=== PATIENT | male | born 1955 | race Caucasian/White ===

== ENCOUNTER 2024-09-12 13:28 | Outpatient (AMB) | payer MEDICARE, SELFPAY ==
--- OUTSIDE RECORDS SUMMARY | 2015-04-26 | XMS_ITS | Encounter Summary ---
Author Organization [facility] Address [address] [place] [address] Phone Care Team Providers Care Soda Drier Feeder Name Role Phone Bart Campa MD Primary Care Provider + [phone] Reason for Visit * MRI/CAT Scan - Closed Specialty Diagnoses / Procedures Referred By Contac t Referred To Contact Procedures MRI Brain Outside (No Interpretation) Lety Holt MD [address] [place] [address] Phone: tel: fax: mailto:[email or web address] Referral ID Status Reason Start Date Expiration Date Visits Re quested Visits Authorized [id number] Closed 06/14/2016 06/14/2017 1 1 Encounter Details Date Type Department Care Team (Late st Contact Info) Description 04/26/2015 Hospital Encounter [facility] General Imaging [address] [place] [address] Lety Holt MD [address] [place] [address] [email or web address] Social History Tobacco Use Types Packs/Day Years Used Date Smoking Tobacco: Unknown Education Answer Date Recorded Are you interested in more education? Not on eric e 06/18/2022 Are you concerned about learning? Not on file 06/18/2022 No 06/18/2022 No 06/18/2022 Digital Access Answer Date Recorded No 07/09/2022 No 07/09/2022 No 07/09/2022 Reliable internet access at home? Not on file 07/09/2022 Device with a working camera? Not on file Sex and Gender Information Value Date Recorded Sex Assigned at Not on file Legal Sex Male 6:01 PM EST Gender Identity Not on file Sexual Orientation Not on file documented as of this encounter Plan of Treatment Not on file documented as of this encounter Procedures Procedure Name Priority Date/Time Associated Diagnosis Comments MRI BRAIN OUTSIDE (NO INTERPRETATION) Routine 04/26/2015 12:00 AM EDT documented in this encounter Results * MRI Brain Outside (No Interpretation) (04/26/2015 12:00 AM EDT) Narrative [facility] - 06/14/2016 1:48 PM EDT This study is for PACS storage only and not for interpretation. us Lety Holt MD IMG OUTSIDE IMAGING W/OUT INTERP RETATION Final Result Performing Organization Address City/State/[facility] Co de Phone Number [facility] documented in this encounter Visit Diagnoses Not on filedocumented in this encounter Care Teams Soda Drier Feeder Relationship Specialty Start Date End Date Bart Campa MD [address] [place] [address] PCP - General 08/12/13 documented as of this encounter Additional Source Comments The information contained in this document represents components of the legal health record. It is not the complete legal health record.[facility]
--- OUTSIDE RECORDS SUMMARY | 2024-09-09 16:43 | XMS_ITS | Continuity of Care Document ---
Author Organization [facility] ter Address [address] [place] [address]- Care Team Providers Care Shipping/Receiving Manager Name Role Phone Bart Campa MD [id number] Date[facility]): [facility]09/24 - 09/09/[address] [address]- Discharge Disposition: A-D/C Home Attending Physician: Guillermo Tracey DO Admitting Physician: Guillermo Tracey DO Referring Physician: Not on Staff, Referring MD Encounter Type: Disch ES Allergies, Adverse Reactions, Alerts Substance Criticality Severity Reaction Reaction Severity Status Tape Rash some tape causes mild redness on skin Active Other Environmental Allergy 1, 2 Unable to assess criticality Intermittent casting matterial Blisters Rash Active Percocet 5/325 nausea Activ e Darvocet-N 100 nausea Activ e 1PT IS ALLERGIC TO CASTING MATERIAL USED FOR ORTHOPEDICS 2Casting material Immunizations Given and Recorded Vaccine Date Status Refusal Reason SARS-CoV-2 (COVID-19) mRNA-1273 vaccine 05/04/20 G iven SARS-CoV-2 (COVID-19) mRNA-1273 vaccine 04/2020 R ecorded SARS-CoV-2 (COVID-19) mRNA-1273 vaccine 04/06/20 G iven pneumococcal 23-valent vaccine 1 12/07/18 Given 1Result Comment: sent up from pharmacy by curtis pisano WNL- was discarded in sharps containerprior to completetion of info documentation Medications buPROPion 300 mg/24 hours (XL) oral tablet, extended release 1 tablet = 300 mg, By Mouth, Daily at bedtime, # 30 tablet, 0 Refills, Maintenance, 12/04/18 8:23:26 PM EDT, ER Tablet Start Date: 12/04/18 Status: Ordered Quantity: 30.0 Unit: tablet Repeat number: 1 duloxetine 60 mg oral enteric coated capsule 2 capsule = 120 mg, By Mouth, Daily in AM, # 30 capsule, 0 Refills, Maintenance, 12/04/18 8:24:33 PM EDT, EC Capsule Start Date: 12/04/18 Status: Ordered Quantity: 30.0 Unit: capsule Repeat number: 1 Fish Oil = 500 mg, By Mouth, 0 Refills, Maintenance, 10/26/22 2:36:00 PM EDT, Partial fill upon patient request if the prescription is for a schedule II opioid drug. Start Date: 10/26/22 Status: Ordered Repeat number: 1 gabapentin 300 mg oral capsule See Instructions, By Mouth, Daily in AM, 1 capsule Daily in AM 300 in am 600mg in pm, # 3 tablet, Refills 0, Tot. Refills 0, Maintenance, 07/05/20 1:20:00 PM EDT, Instructions Replace Required Details, Print Requisition, Partial fill upon patient request if the prescription is for a schedule II opioid drug. Start Date: 07/05/20 Status: Ordered Quantity: 3.0 Unit: tablet Repeat number: 1 Omeprazole = 40 mg, By Mouth, Daily, 0 Refills, Maintenance, 02/22/23 2:10:00 PM EST, Partial fill upon patientrequest if the prescription is for a schedule II opioid drug. Start Date: 02/22/23 Status: Ordered Repeat number: 1 pravastatin 80 mg oral tablet 1 tablet = 80 mg, By Mouth, Daily in AM, 0 Refills, Maintenance, 07/08/21 2:43:00 PM EDT, Partial fill upon patient request if the prescription is for a schedule II opioid drug. Start Date: 07/08/21 Status: Ordered Repeat number: 1 Super B Complex 1 tab, By Mouth, Daily, 0 Refills, Maintenance, 06/24/20 5:07:00 PM EDT, Partial fill upon patient request if the prescription is for a schedule II opioid drug. Start Date: 06/24/20 Status: Ordered Repeat number: 1 tadalafil 5 mg oral tablet 1 tablet = 5 mg, By Mouth, Daily at bedtime, 0 Refills, Maintenance, 07/08/21 2:40:00 PM EDT, Partial fill upon patient request if the prescription is for a schedule II opioid drug. Start Date: 07/08/21 Status: Ordered Repeat number: 1 tamsulosin 0.4 mg oral capsule 0.4 mg, 1, capsule, By Mouth, Daily, # 30 capsule, Refills 0, Maintenance, 07/02/24 10:49:00 AM EDT,Partial fill upon patient request if the prescription is for a schedule II opioid drug. 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 spent the day doing house work, walking a lot. denies injury or falls. pain with walking or movement only; Reason: Trauma; with Pain; Clinical Question(s): Fracture; Special Instructions: Patella ([place] View) COMPARISON: 11/02/2022 FINDINGS: Status post placement of plate and screw fixation. No evidence of loosening. Intramedullary jaime noted. Mild tricompartmental degenerative osteoarthritis but no evidence of osteochondral defect or intra-articular loose body. No evidence of joint effusion. IMPRESSION: No acute abnormality. WSN: [id number] Ordering Physician: Deven Horta Dictated By: Gaurang Romero MD Dictated Date/Time: 09/09/24 3:30 pm Reviewed By: Gaurang Romero MD Signed By: Gaurang Romero MD Signed Date/Time: 09/09/24 3:30 pm Transcribed By: ADRY Transcribed Date/Time: 09/09/24 3:28 pm Social History Social History Type Response Smoking Status Former smoker, quit more than 30 days ago entered on: 07/02/24 Sex Sex Representation Male (finding) Note * Rula RUCKER, Deven R: PERFORM, SIGN, VERIFY Event Display: Patient Education Handout Authored Date: [id number] Patient Care team information Care Team Personnel Name: Jazmine Maxwell RN Position: [facility] RN Member Role: Primary Care Nurse Name: Leonor Spencer RN Position: [facility] SN RN Member Role: Primary Care Nurse Name: Lila Zelaya RN Position: [facility] RN Member Role: Primary Care Nurse Name: Sreedhar Tracey RN Position: [facility] RN Member Role: Primary Care Nurse Name: Arlet Barrow RN Position: [facility] RN Member Role: Primary Care Nurse Name: Suzan Turner RN Position: [facility] OB RN Member Role: Primary Care Nurse Name: Joanie Estrada RN Position: [facility] RN Member Role: Primary Care Nurse Name: Nanda Krishnamurthy RN Position: [facility] SN RN Member Role: Primary Care Nurse Name: Bart Campa MD Position: [facility] Outreach Member Role: PCP Address: [address] [place] [address]- Telecom: Name: Kendal Goetz RN Position: [facility] SN RN Member Role: Primary Care Nurse Name: Katiuska Abel RN Position: [facility] RN Member Role: Primary Care Nurse Name: Pooja Rice NP Position: [facility] Associate Professional Member Role: Primary Care Nurse Address: [address] [place] [address] [place] [address] [place] [address]- Telecom: Name: Loly Velez RN Position: [facility] RN Member Role: Primary Care Nurse Name: Denia Lakhani RN Position: [facility] RN Member Role: Primary Care Nurse Name: Adrianne Dugan RN Position: [facility] RN Member Role: Primary Care Nurse Name: Sydnee Peña RN Position: [facility] Hospital Hot Air Furnace Installer Repairer Member Role: Primary Care Nurse Care Team Related Persons Name: LILA DA SILVA Name: BABATUNDE GILLIS Name: BABATUNDE DILLARD Insurance Providers Guarantor name: VILMA MARC[employer]bina Health Plan Information #: 1 Payer: MEDICARE B Payer Identifier: NA Member Number: [id number] Group Number: NA Subscriber Identifier: [id number] Relationship to Subscriber: self Coverage Type: NA Coverage Verification Date: ALBA Telecom: NA Address: Health Plan Information #: 2 Payer: MEDEX SECONDARY ONLY Payer Identifier: ALBA Member Number: [id number] Group Number: [id number] Subscriber Identifier: [id number] Relationship to Subscriber: self Coverage Type: Medicare Other Coverage Verification Date: ALBA Telecom: NA Address: NA
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
[2024-09-12 13:33] VITALS: BP 114/68; PULSE 88; O2SAT 92; BMI 31.2
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
== END 2024-09-12 14:06 | disposition home or self-care (01) ==
PROVIDERS: PCP Internal Medicine; Referring Provider Internal Medicine; Visit Provider Hospitalist
DX: G47.33 Obstructive sleep apnea (adult) (pediatric) (principal); J43.2 Centrilobular emphysema; G89.29 Other chronic pain; J98.6 Disorders of diaphragm
CPT/HCPCS: 99204

== ENCOUNTER → 2024-09-12 13:28 | Outpatient (BNVA) | payer MEDICARE, SELFPAY | PROVIDERS: PCP Internal Medicine; Referring Provider Internal Medicine; Visit Provider Hospitalist | DX: G47.33 Obstructive sleep apnea (adult) (pediatric) (principal); J43.2 Centrilobular emphysema; J98.6 Disorders of diaphragm; G89.29 Other chronic pain | CPT/HCPCS: 99202 ==

== ENCOUNTER → 2024-11-20 12:55 | Outpatient (REF) | payer MEDICARE, SELFPAY | LOC: HO.SL 12:55 | PROVIDERS: PCP Internal Medicine; Visit Provider Hospitalist | DX: G47.33 Obstructive sleep apnea (adult) (pediatric) (principal) | CPT/HCPCS: 95806 ==

== ENCOUNTER 2024-12-12 14:51 | Outpatient (AMB) | payer MEDICARE, SELFPAY ==
--- OUTSIDE RECORDS SUMMARY | 2015-04-26 | XMS_ITS | Encounter Summary ---
Author Organization [facility] Address [address] [place] [address] Phone Care Team Providers Care Data Collection Technician Name Role Phone Bart Campa MD Primary Care Provider + [phone] Reason for Visit * MRI/CAT Scan - Closed Specialty Diagnoses / Procedures Referred By Contac t Referred To Contact Procedures MRI Brain Outside (No Interpretation) Lety Holt MD [address] [place], [place] [address] [place] [address] Phone: tel: fax: mailto:[email or web address] Referral ID Status Reason Start Date Expiration Date Visits Re quested Visits Authorized [id number] Closed 06/14/2016 06/14/2017 1 1 Encounter Details Date Type Department Care Team (Late st Contact Info) Description 04/26/2015 Hospital Encounter [facility] [address] [place] [address] Lety Holt MD [address] [place], [place] [address] [place] [id number] [email or web address] Social History Tobacco Use Types Packs/Day [...] (No Interpretation) (04/26/2015 12:00 AM EDT) Narrative [facility] INTER[facility] - 06/14/2016 1:48 PM EDT This study is for PACS storage only and not for interpretation. Lety Holt MD IMG OUTSIDE IMAGING W/OUT INTERP RETATION Final Result [facility] documented in this encounter Visit Diagnoses Not on filedocumented in this encounter Care Teams Data Collection Technician Relationship Specialty Start Date End Date Bart Campa MD [address] [place] [address] PCP - General 08/12/13 documented as of this encounter Additional Source Comments The information contained in this document represents components of the legal health record. It is not the complete legal health record.[facility]
--- OUTSIDE RECORDS SUMMARY | 2015-04-26 00:15 | XMS_ITS | Encounter Summary ---
Author Organization [facility] Address [address] [place] [address] Phone Care Team Providers Care Environmental Aide Name Role Phone Bart Campa MD Primary Care Provider + [phone] Reason for Visit * MRI/CAT Scan - Closed Specialty Diagnoses / Procedures Referred By Contac t Referred To Contact Procedures MRI Brain Outside (No Interpretation) Lety Holt MD [address] [place], [place] [address] [place] [address] Phone: tel: fax: mailto:[email or web address] Referral ID Status Reason Start Date Expiration Date Visits Re quested Visits Authorized [id number] Closed 06/14/2016 06/14/2017 1 1 Encounter Details Date Type Department Care Team (Late st Contact Info) Description 04/26/2015 12:15 AM EDT Hospital Encounter [facility] [address] [place] [address] Lety Holt MD [address] [place] [address] [place] [address] [email or web address] Social History Tobacco Use Types Packs/Day Years [...] MRI BRAIN OUTSIDE (NO INTERPRETATION) Routine 04/26/2015 12:15 AM EDT documented in this encounter Results * MRI Brain Outside (No Interpretation) (04/26/2015 12:15 AM EDT) Narrative [facility] - 06/14/2016 1:48 PM EDT This study is for PACS storage only and not for interpretation. Lety Holt MD IMG OUTSIDE IMAGING W/OUT INTERP RETATION Final Result [facility] documented in this encounter Visit Diagnoses Not on filedocumented in this encounter Care Teams Environmental Aide Relationship Specialty Start Date End Date Bart Campa MD [address] [place] [address] PCP - General 08/12/13 documented as of this encounter Additional Source Comments The information contained in this document represents components of the legal health record. It is not the complete legal health record.[facility]
--- OUTSIDE RECORDS SUMMARY | 2024-06-04 10:36 | XMS_ITS ---
Author Organization [facility] Address [address] [place], [place] [id number] Care Team Providers Care Psychiatric Security Nurse Name Role Phone COMER KANDIS Primary Care Provider REASON FOR VISIT Gabapentin 300 MG Capsule MEDICATIONS Medication SIG (Take, Route, Fr equency, Duration) Notes Start Date End Date Status Gabapentin 300 MG 1 cap(s) orally thre e times daily for 90 days Active Encounters Encounter Location Date Provider Diagnosis [facility] [address] [place] [address] 06/04/2024 KANDIS COMER Neuropathy G62.9 ASSESSMENTS Encounter Date Diagnosis Assessment Notes Treatment Notes Treatment Clinical Notes Section Notes 06/04/2024 Neuropathy (ICD-10 - G62.9) PLAN OF TREATMENT Medication Medication Name Sig Start Date Stop Date Notes Gabapentin 300 MG 1 cap(s) orally thre e times daily for 90 days
--- OUTSIDE RECORDS SUMMARY | 2024-06-13 05:40 | XMS_ITS ---
Author Organization [facility] Address [address] [place], [place] [id number] Care Team Providers Care Stock Digger Name Role Phone KANDIS COMER Primary Care Provider REASON FOR VISIT copd Encounters Encounter Location Date Provider Diagnosis [facility] [address] [place] [address] 06/13/2024 KANDIS COMER Chronic obstructive pulmonary disease, unspecified COPD type J44.9 ASSESSMENTS Encounter Date Diagnosis Assessment Notes Treatment Notes Treatment Clinical Notes Section Notes 06/13/2024 Chronic obstructive pulmonary disease, unspecified COPD type (ICD-10 - J44.9) PLAN OF TREATMENT Pending Test Test Name Order Date PFT (Pulmonary Function Test) 06/13/2024
--- OUTSIDE RECORDS SUMMARY | 2024-06-13 05:42 | XMS_ITS ---
Author Organization [facility] Address [address] [place], [place] [id number] Care Team Providers Care Oracle Forms Developer Name Role Phone KANDIS COMER Primary Care Provider [phone] REASON FOR REFERRAL Reason 06/16/[address] Atwood for COPD send copy my last note CAT scan of the chest and labs in 6 months over to them Diagnosis 1 Chronic obstructive pulmonary disease, unspecified COPD type (J44.9) Referral Organization [facility] Referring Provider First Name KANDIS Referring Provider Last Name NAHOMI Referring Provider Speciality Internal M edicine Referred Provider MELVI ATWOOD Referred Provider Specialty Pulmonary Di seases General Notes Rolanda STARK Admin 06/2024 12:50:41 PM > faxed medical referral, note and most recent labs to Dr Atwood at [phone]>faxed 06/11/24 CT of Chest>no referral required Referral Priority Routine Encounters Encounter Location Date Provider Diagnosis [facility] [address] [place] [address] 06/13/2024 KANDIS COMER Chronic obstructive pulmonary disease, unspecified COPD type J44.9 ASSESSMENTS Encounter Date Diagnosis Assessment Notes Treatment Notes Treatment Clinical Notes Section Notes 06/13/2024 Chronic obstructive pulmonary disease, unspecified COPD type (ICD-10 - J44.9) PLAN OF TREATMENT Referrals Referral Date Details 06/16/[address] Atwood for COPD send copy my last note CAT scan of the chest and labs in 6 months over to themMELVI Consultation Request Notes Referral Date Referring Provider Referred Provider Not es 06/13/2024 KANDIS COMER MIGUEL [address] Atwood for COPD send copy my last note CAT scan of the chest and labs in 6 months over to them
--- OUTSIDE RECORDS SUMMARY | 2024-06-20 05:49 | XMS_ITS ---
Author Organization [facility] Address [address] [place], [place] [phone] Care Team Providers Care Runner On Name Role Phone KANDIS COMER Primary Care Provider REASON FOR VISIT fax order/Pt there Encounters Encounter Location Date Provider Diagnosis [facility] [address] [place] [address] 06/20/2024 KANDIS COMER PLAN OF TREATMENT No Information
--- OUTSIDE RECORDS SUMMARY | 2024-06-21 04:49 | XMS_ITS ---
Author Organization [facility] Address [address] [place], [place] [id number] Care Team Providers Care Investigator Vice Name Role Phone KANDIS COMER Primary Care Provider REASON FOR VISIT poind Encounters Encounter Location Date Provider Diagnosis [facility] [address] [place] [address] 06/21/2024 KANDIS COMER PLAN OF TREATMENT No Information
--- OUTSIDE RECORDS SUMMARY | 2024-09-10 05:03 | XMS_ITS ---
Author Organization [facility] Address [address] [place], [place] [id number] Care Team Providers Care Tissue Technician Name Role Phone KANDIS COMER Primary Care Provider REASON FOR VISIT CM/ED JUANA Encounters Encounter Location Date Provider Diagnosis [facility] [address] [place] [address] 09/10/2024 KANDIS COMER PLAN OF TREATMENT No Information
--- OUTSIDE RECORDS SUMMARY | 2024-10-09 09:01 | XMS_ITS ---
Author Organization [facility] Address [address], [place] [address] Care Team Providers Care Agricultural Equipment Sales Manager Name Role Phone KANDIS COMER Primary Care Provider REASON FOR VISIT MRI Med Encounters Encounter Location Date Provider Diagnosis [facility] [address] [place] [address] 10/09/2024 KANDIS COMER PLAN OF TREATMENT No Information
--- OUTSIDE RECORDS SUMMARY | 2024-11-07 08:50 | XMS_ITS ---
Author Organization [facility] Address [address] [place], [place] [id number] Care Team Providers Care Java Developer Analyst Name Role Phone KANDIS COMER Primary Care Provider MARY ANN BURGESS [phone] REASON FOR VISIT Lorazepam refill MEDICATIONS Medication SIG (Take, Route, Fr equency, Duration) Notes Start Date End Date Status LORazepam 0.5 MG 1 tablet 1 hour prio r to MRI may repeat x 1 Orally as directed for 1 day 11/07/2024 Active Encounters Encounter Location Date Provider Diagnosis [facility] [address] [place] [address] 11/07/2024 MARY ANN BURGESS PLAN OF TREATMENT Medication Medication Name Sig Start Date Stop Date Notes LORazepam 0.5 MG 1 tablet 1 hour prio r to MRI may repeat x 1 Orally as directed for 1 day 11/07/2024
--- OUTSIDE RECORDS SUMMARY | 2024-12-04 11:00 | XMS_ITS ---
Author Organization [facility] Address [address] [place], [place] [id number] Care Team Providers Care Cabinet Maker Name Role Phone KANDIS COMER Primary Care Provider ALLERGIES Allergen (clinical drug ingredient) Drug/Non Drug Allergy documented on EMR Reaction Allergy Type Onset Date Status casting material (uncoded) Unknown Allergy Active acetaminophen / oxycodone Percocet GI Drug Allergy Active REASON FOR VISIT 6mo F/U, would like flu vaccine MEDICATIONS Medication SIG (Take, Route, Frequency, Duration) Notes Start Date End Date Status Omeprazole 40 MG 1 cap(s) orally once a day for 90 days Active Gabapentin 300 MG 1 cap(s) orally thre e times daily for 90 days Active LORazepam 0.5 MG 1 tablet 1 hour prio r to MRI may repeat x 1 Orally as directed for 1 day 11/07/2024 Active Amoxicillin 500 MG 4 capsule Orally one hour prior for 4 days dentist 09/25/2022 Active Pravastatin Sodium 80 MG TAKE ONE TABLET BY MOUTH ONCE DAILY Orally Once a day for 90 days Active Tadalafil 5 MG 1 tablet as needed Orally Once a day Active Fenofibrate 48 MG TAKE ONE TABLET BY M OUTH ONCE DAILY Orally Once a day for 90 days Active DULoxetine HCl 60 MG 2 tablets Orally On ce a day Active Tamsulosin HCl 0.4 MG as directed Orally once a day Active buPROPion HCl ER (XL) 300 MG 1 tab(s) orally every 24 hours Active Vitamin B 12 500 MCG 1 tablet Orally Onc e a day Active Vitamin D 25 MCG (1000 UT) 1 tab(s) oral ly once a day Active Multivitamin - 1 tablet Orally Once a day Active SOCIAL HISTORY Tobacco Use: Social History Observation Description Date Details (start date - stop date) Former Smoker NA - NA Sex Assigned At : Social History Observation Description Sex Assigned At Unknown Smoking Question Answer Notes Are you a: former smoker Section Notes: smoked 1.5 ppd x 25 years, q uit 1999 VITAL SIGNS Height 6 ft 1 in in 12/04/2024 Weight 212 lbs 12/04/2024 Blood pressure systolic 130 mm Hg 12/05/19 25 Blood pressure diastolic 80 mm Hg 025 BMI 27.97 kg/m2 12/04/2024 Encounters Encounter Location Date Provider Diagnosis [facility] [address] [place] [address] 12/04/2024 KANDIS COMER Disorder of lipoprotein metabolism, unspecified E78.9 ; Gastro-esophageal reflux disease without esophagitis K21.9 ; Major depressive disorder, single episode, unspecified F32.9 ; Chronic fatigue, unspecified R53.82 ; Male erectile dysfunction, unspecified N52.9 ; Neuropathy G62.9 ; Neoplasm of prostate D49.59 ; Chronic obstructive pulmonary disease, unspecified J44.9 ; Elevated serum creatinine R79.89 ; Deficiency of other specified B group vitamins E53.8 and Low vitamin D level R79.89 ASSESSMENTS Encounter Date Diagnosis Assessment Notes Treatment Notes Treatment Clinical Notes Section Notes 12/04/2024 Disorder of lipoprotein metabolism, unspecified (ICD-10 - E78.9) Continue fibrate and statin. Check lipid profile with LDL goal less than 100 less than 70 optimally diet exercise weight loss recommended 12/04/2024 Gastro-esophage al reflux disease without esophagitis (ICD-10 - K21.9) Continue omeprazole. Increase symptoms when discontinuing medication. Metabet elevation dietary recommendations discussed. Check B12 folic acid iron iron-binding and vitamin D 12/04/2024 Major depressive disorder, single episode, unspecified (ICD-10 - F32.9) Stable seems to be doing well continue above medications including duloxetine and bupropion 12/04/2024 Chronic fatigue, unspecified (ICD-10 - R53.82) 12/04/2024 Male erectile dysfunction, unspecified (ICD-10 - N52.9) Continue as needed sildenafil follow-up with urology 12/04/2024 Neuropathy (ICD-10 - G62.9) 12/04/2024 Neoplasm of prostate (ICD-10 - D49.59) Awaiting biopsy of the prostate. Patient with known prostate cancer but increase in PSA and now lesion on the MRI is prompting more aggressive treatment 12/04/2024 Chronic obstructive pulmonary disease, unspecified (ICD-10 - J44.9) Stable by physical exam with systems follow-up with Dr. Atwood doing well at the present time 12/04/2024 Elevated serum creatinine (ICD-10 - R79.89) Recheck kidney function check UA check serum protein electrophoresis free light chains etc. check immunofixation and check urinalysis 12/04/2024 Deficiency of other specified B group vitamins (ICD-10 - E53.8) Check B12 and folic acid level 12/04/2024 Low vitamin D level (ICD-10 - R79.89) Check vitamin D recommendation to get his vitamin D PLAN OF TREATMENT Treatment Notes Assessment Notes Disorder of lipoprotein meta bolism, unspecified Continue fibrate and statin. Check lipid profile with LDL goal less than 100 less than 70 optimally diet exercise weight loss recommended Gastro-esophageal reflux dis ease without esophagitis Continue omeprazole. Increase symptoms w hen discontinuing medication. Metabet elevation dietary recommendations discussed. Check B12 folic acid iron iron-binding and vitamin D Major depressive disorder, s marti episode, unspecified Stable seems to be doing well continue a kev medications including duloxetine and bupropion Male erectile dysfunction, unspecified C ontinue as needed sildenafil follow-up with urology Neoplasm of prostate Awaiting biopsy of the prostate. Patient with known prostate cancer but increase in PSA and now lesion on the MRI is prompting more aggressive treatment Chronic obstructive pulmonar y disease, unspecified Stable by physical exam with systems follow-up with Dr. Atwood doing well at the present time Elevated serum creatinine Recheck kidney function check UA check serum protein electrophoresis free light chains etc. check immunofixation and check urinalysis Deficiency of other specifie d B group vitamins Check B12 and folic acid level Low vitamin D level Check vitamin D godfrey mmendation to get his vitamin D Pending Test Test Name Order Date EKG 12/04/2024 Next Appt Details Follow Up: Follow-up to 6 mo nt labs pending EKG today, Reason: Progress Notes * Examination Category Sub-Category Detail Notes Category Not es General Examination HEENT: Conjunctiva pink anicteric mucous membranes moist oropharynx clear TMs clear sinuses clear EACs are clear Neck: Supple carotids 2+ n o bruits lymphadenopathy or thyromegaly Heart: Regular rate and rhy thm no significant murmurs rubs or gallops Lungs: clear to auscultatio n Abdomen: soft, non tender/non distended, no rebound tenderness, no guarding or rigidity, no masses palpated, no hepatosplenomegaly, normal active bowel sounds Extremities: no edema, pulses 2 p ness bilaterally General Appearance Pleasant well-develo ped well-nourished weight male appearing stated age no apparent distress Skin: normal, no rash, armida ign appearing moles Neuro alert and oriented x 3, CN 2-12 intact, motor 5/5 bilaterally proximally and distally in all 4 extremities Musculoskeletal Right hip and knee f ull range of motion. Mild crepitus right knee. Some mild bony swelling. No effusion. Left hip with good internal/external rotation and flexion extension. Left knee with mild bony swelling without effusion full flexion History and Physical Notes * HPI (History of Present Illness) Category Sub-Category Detail Notes Category Not es General Follow-up GERD. See review of systems below
--- OUTSIDE RECORDS SUMMARY | 2024-12-04 12:15 | XMS_ITS ---
Author Organization [facility] Address [address], [place] [id number] Care Team Providers Care Front Line Supervisor Name Role Phone KANDIS COMER Primary Care Provider [place], NURSING [facility] [phone] REASON FOR VISIT flu shot IMMUNIZATIONS Vaccine Route Administration Date Status Comme nts Influenza, Fluzone HD 65+ IM Intramuscular 12/04/2024 Admi nistered Encounters Encounter Location Date Provider Diagnosis [facility] [address] [place] [address] 12/04/2024 NURSING [place] Encounter for immunization Z23 ASSESSMENTS Encounter Date Diagnosis Assessment Notes Treatment Notes Treatment Clinical Notes Section Notes 12/04/2024 Encounter for immunization (ICD-10 - Z23) HD Influenza vaccine administered. Patient counseled and VIS sheet given. PLAN OF TREATMENT Treatment Notes Assessment Notes Encounter for immunization HD Influenza vaccine administered. Patient counseled and VIS sheet given. Next Appt Details Follow Up: prn, Reason:
[2024-12-12 14:53] VITALS: BP 140/70; PULSE 96; O2SAT 94; BMI 31.6
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
--- OUTSIDE RECORDS SUMMARY | 2024-12-12 15:14 | XMS_ITS | Patient Health Record ---
Author Organization [facility] Address [address], [place] [id number] Care Team Providers Care Supervisor [employer] Name Role Phone KANDIS COMER Primary Care Provider [place], NURSING Unavailable [phone] MARY ANN BURGESS Unavailable [phone] ALLERGIES Allergen (clinical drug ingredient) Drug/Non Drug Allergy documented on EMR Reaction Allergy Type Onset Date Status casting material (uncoded) Unknown Allergy Active acetaminophen / oxycodone Percocet GI Drug Allergy Active REASON FOR REFERRAL Reason (faxed 06/01/24) elev ated serum creatinine Referral Organization [facility] Referring Provider First Name KANDIS Referring Provider Last Name NAHOMI Referring Provider Speciality Internal M edicine Referred Provider LUIS DANIEL HEREDIA Referred Provider Specialty Nephrology General Notes Kaila STARK MA 05/14 11:19:25 AM > faxed to Dr Heredia office, F: [phone] Referral Priority Routine Reason 06/16/[address] Atwood for COPD send copy my last note CAT scan of the chest and labs in 6 months over to them Diagnosis 1 Chronic obstructive pulmonary disease, unspecified COPD type (J44.9) Referral Organization [facility] Referring Provider First Name KANDIS Referring Provider Last Name NAHOMI Referring Provider Speciality Internal M edicine Referred Provider MELVI ATWOOD Referred Provider Specialty Pulmonary Di seases General Notes Rolanda STARK 06/2024 12:50:41 PM > faxed medical referral, note and most recent labs to Dr Atwood at [phone]>faxed 06/11/24 CT of Chest>no referral required Referral Priority Routine MEDICATIONS Medication SIG (Take, Route, Frequency, Duration) Notes Start Date End Date Status Fenofibrate 48 MG TAKE ONE TABLET BY M OUTH ONCE DAILY Orally Once a day for 90 days Active Omeprazole 40 MG 1 cap(s) orally once a day for 90 days Active Vitamin B 12 500 MCG 1 tablet Orally Onc e a day Active Gabapentin 300 MG 1 cap(s) orally thre e times daily for 90 days Active Vitamin D 25 MCG (1000 UT) 1 tab(s) oral ly once a day Active LORazepam 0.5 MG 1 tablet 1 [...] as directed Orally once a day Active Multivitamin - 1 tablet Orally Once a day Active buPROPion HCl ER (XL) 300 MG 1 tab(s) orally every 24 hours Active Tadalafil 5 MG 1 tablet as needed Orally Once a day Active IMMUNIZATIONS Vaccine Route Administration Date Status Comme nts Influenza, Fluzone HD 65+ IM Intramuscular 01/25/2023 Admi nistered Influenza, Fluzone HD 65+ IM Intramuscular 11/28/2023 Admi nistered Influenza, Fluzone HD 65+ IM Intramuscular 12/04/2024 Admi nistered SOCIAL HISTORY Tobacco Use: Social History Observation Description Date Details (start date - stop date) Former Smoker NA - NA Sex Assigned At : Social History Observation Description Sex Assigned At Unknown Smoking Question Answer Notes Are you a: former smoker Alcohol Screen Question Answer Notes Did you have a drink contain ing alcohol in the past year? Yes How often did you have a dri nk containing alcohol in the past year? Monthly or less (1 point) How many drinks did you have on a tpical day when you were drinking in the past year? 1 or 2 (0 points) How often did you have six o r more drinks on one occassion in the past year? Never (0 points) Points 1 Interpretation Negative Section Notes: smoked 1.5 ppd x 25 years, q uit 1999 smoked 1.5 ppd x 25 years, q uit 2000 smoked 1.5 ppd x 25 years, q uit 2000 smoked 1.5 ppd x 25 years, q uit 2000 smoked 1.5 ppd x 25 years, q uit 2000 smoked 1.5 ppd x 25 years, q uit 1999 PROBLEMS Problem Type ICD Code Onset Dates Problem Status W/U Status Risk SNOMED Code Notes Problem Chronic obstructive pulmonary disease, unspecified (J44.9) Active confirmed Chronic obstructive pulmonary disease (63146423) Problem Insomnia, unspecified (G47.00) Active confirmed Insomnia (227441737) Problem Chronic fatigue, unspecified (R53.82) Active confirmed Chronic fatigue syndrome (disorder) (48535752) Problem Neuropathy (G62.9) Active confirmed 386 244866 Problem Disorder of lipoprotein metabolism, unspecified (E78.9) Active confirmed Disorder of lipoprotein storage and metabolism (disorder) (753557288) Problem Major depressive disorder, single episode, unspecified (F32.9) Active confirmed Major depression, single episode (42129031) Problem Chronic pain syndrome (G89.4) Active confirmed Chronic octavia n syndrome (292878431) Problem Gastroesophageal reflux disease without esophagitis (K21.9) Active confirmed 796904404 Problem Erectile dysfunction, unspecified erectile dysfunction type (N52.9) Active confirmed 246882348 Problem Major depressive disorder with single episode, in full remission (F32.5) Active confirmed 25461327 Problem Benign prostatic hyperplasia with lower urinary tract symptoms (N40.1) Active confirmed 0970890528973 Problem History of skin cancer (Z85.828) Active confirmed 274727558 Problem Dyslipidemia (E78.5) Active confirmed 074590668 Problem Benign prostatic hyperplasia, unspecified whether lower urinary tract symptoms present (N40.0) Active confirmed 020939084 Problem Stage 3a chronic kidney disease (CKD) (N18.31) Active confirmed 144551039 VITAL SIGNS Blood pressure diastolic 80 mm Hg 12/04/2024 Height 6 ft 1 in in 12/04/2024 Blood pressure systolic 130 mm Hg 12/04/2024 Weight 212 lbs 12/04/2024 BMI 27.97 kg/m2 12/04/2024 Encounters Encounter Location Date Provider Diagnosis [address] [address] 02/19/2024 KANDIS COMER [facility] [address] [place] [address] 03/05/2024 KANDIS COMER [facility] [address] [place] [address] 05/08/2024 KANDIS COMER [address] [address] 05/29/2024 KANDIS COMER Medicare annual wellness visit, subsequent Z00.[address] [address] 05/29/2024 KANDIS COMER Disorder of lipoprotein metabolism, unspecified E78.9 ; Gastro-esophageal reflux disease without esophagitis K21.9 ; Chronic fatigue, unspecified R53.82 ; Major depressive disorder, single episode, unspecified F32.9 ; Male erectile dysfunction, unspecified N52.9 ; History of skin cancer Z85.828 ; Chronic obstructive pulmonary disease, unspecified J44.9 ; Neoplasm of prostate D49.59 ; Deficiency of other specified B group vitamins E53.8 and Lung field abnormal finding on examination R91.[address] [address] 05/30/2024 KANDIS COMER Elevated serum creatinine R79.[address] [address] 06/04/2024 KANDIS COMER Neuropathy G62.[address] [address] 06/13/2024 KANDIS COMER Chronic obstructive pulmonary disease, unspecified COPD type J44.[address] [address] 06/13/2024 KANDIS COMER Chronic obstructive pulmonary disease, unspecified COPD type J44.[address] [address] 06/20/2024 KANDIS COMER [address] [address] 06/21/2024 KANDIS COMER [address] [address] 09/10/2024 KANDIS COMER [address] [address] 10/09/2024 KANDIS COMER [address] [address] 11/07/2024 MARY ANN [facility] [address] [place] [address] 12/04/2024 KANDIS COMER Disorder of lipoprotein metabolism, [...] E53.8 and Low vitamin D level R79.89 [facility] [address] [place] [address] 12/04/2024 NURSING [place] Encounter for immunization Z23 ASSESSMENTS Encounter Date Diagnosis Assessment Notes Treatment Notes Treatment Clinical Notes Section Notes 05/29/2024 Medicare annual wellness visit, subsequent (ICD-10 - Z00.00) AWV reviewed with pt 05/29/2024 Gastro-esophagea l reflux disease without esophagitis (ICD-10 - K21.9) Stable doing well check B12 folic acid continue PPI 05/29/2024 Disorder of lipoprotein metabolism, unspecified (ICD-10 - E78.9) Continue fibrate and statin. Check lipid profile LDL goal less than 100 follow-up in 6 months if at goal 12/04/2024 Gastro-esophagea l reflux disease without esophagitis (ICD-10 - K21.9) Continue omeprazole. Increase symptoms when discontinuing medication. Metabet elevation dietary recommendations discussed. Check B12 folic acid iron iron-binding and vitamin D 12/04/2024 Disorder of lipoprotein metabolism, unspecified (ICD-10 - E78.9) Continue fibrate and statin. Check lipid profile with LDL goal less than 100 less than 70 optimally diet exercise weight loss recommended 05/30/2024 Elevated serum creatinine (ICD-10 - R79.89) 06/04/2024 Neuropathy (ICD-10 - G62.9) 06/13/2024 Chronic obstructive pulmonary disease, unspecified COPD type (ICD-10 - J44.9) 06/13/2024 Chronic obstructive pulmonary disease, unspecified COPD type (ICD-10 - J44.9) 12/04/2024 Encounter for immunization (ICD-10 - Z23) HD Influenza vaccine administered. Patient counseled and VIS sheet given. 12/04/2024 Major depressive disorder, single episode, unspecified (ICD-10 - F32.9) Stable seems to be doing well continue above medications including duloxetine and bupropion 05/29/2024 Chronic fatigue, unspecified (ICD-10 - R53.82) Doing well overall check routine labs physical exam review of systems unchanged 12/04/2024 Chronic fatigue, unspecified (ICD-10 - R53.82) 05/29/2024 Major depressive disorder, single episode, unspecified (ICD-10 - F32.9) Continue duloxetine and bupropion tolerating meds well no significant anxiety or depression 12/04/2024 Male erectile dysfunction, unspecified (ICD-10 - N52.9) Continue as needed sildenafil follow-up with urology 05/29/2024 Male erectile dysfunction, unspecified (ICD-10 - N52.9) Follow-up with urology continue sildenafil daily 05/29/2024 History of skin cancer (ICD-10 - Z85.828) Follow-up dermatology every 6 months 12/04/2024 Neuropathy (ICD-10 - G62.9) 05/29/2024 Chronic obstructive pulmonary disease, unspecified (ICD-10 - J44.9) 12/04/2024 Neoplasm of prostate (ICD-10 - D49.59) Awaiting biopsy of the prostate. Patient with known prostate cancer but increase in PSA and now lesion on the MRI is prompting more aggressive treatment 05/29/2024 Neoplasm of prostate (ICD-10 - D49.59) Patient undergone active surveillance. He will be having a follow-up biopsy in the near future with urology 12/04/2024 Chronic obstructive pulmonary disease, unspecified (ICD-10 - J44.9) Stable by physical exam with systems follow-up with Dr. Atwood doing well at the present time 05/29/2024 Deficiency of other specified B group vitamins (ICD-10 - E53.8) Check B12 folic acid 12/04/2024 Elevated serum creatinine (ICD-10 - R79.89) Recheck kidney function check UA check serum protein electrophoresis free light chains etc. check immunofixation and check urinalysis 05/29/2024 Lung field abnormal finding on examination (ICD-10 - R91.8) Check chest x-ray check CT scan of chest to rule out interstitial lung disease 12/04/2024 Deficiency of other specified B group vitamins (ICD-10 - E53.8) Check B12 and folic acid level 12/04/2024 Low vitamin D level (ICD-10 - R79.89) Check vitamin D recommendation to get his vitamin D PLAN OF TREATMENT Pending Test Test Name Order Date EKG 12/04/2024 EKG 11/13/2022 EKG 11/08/2023 CXR 05/29/2024 PFT (Pulmonary Function Test) 06/13/2024 Future Test Test Name Order Date LIPID PANEL 11/10/2022 BASIC METABOLIC PANEL 11/10/2022 HEPATIC FUNCTION PANEL 11/10/2022 CBC (COMPLETE BLOOD COUNT) 11/10/2022 HEPATITIS C ANTIBODY 11/10/2022 PSA SCREEN 11/10/2022 TSH 11/10/2022 LIPID PANEL 01/25/2023 BASIC METABOLIC PANEL 01/25/2023 25OH VITAMIN D 01/25/2023 ALT (SGPT) 01/25/2023 AST (SGOT) 01/25/2023 CBC (COMPLETE BLOOD COUNT) 01/25/2023 VITAMIN B12 01/25/2023 Hemoglobin [id number] 11/03/2023 Urinalysis, Complete w/ME-[id number] 024 Prostate-Specific Ag (PSA)-[id number] 2023 Lipid Panel-[id number] 11/03/2023 Insurance Providers Payer Name Payer Address Payer Phone Subscriber Number Group Number Insured Name Patient Relationship to Insured Coverage Start Date Coverage End Date MEDICARE [employer] [address] [facility] [place] [address] [id number] VILMA DILLARD Self - patient is the insured 4 [employer] [address] [place] [address] [phone] [id number] VILMA DILLARD Self - patient is the insured MEDICAL (GENERAL) HISTORY Medical History History ICD Code hyperlipidemia back pain neuropathy brain tumor rad RX 2000 memory issues disc lower back Colonoscopy 02/27/18 prep was fair diverticulosis in the sigmoid colon otherwise normal EGD 1/16/19 normal Anxiety and depression Hyperlipidemia Insomnia GERD History of PE History of right femoral fracture Srivastava's palsy Elevated PSA Left tib-fib fracture Left hemidiaphragm elevation CT of the chest December 2020 elevated h emidiaphragm Vaccination status flu q. ye ar COVID 5. Pneumovax x2. Tdap 2016 Shingrix negative T12 DRG stimulator from neurosurgery rev ision 2019 enlarged prostate Urology consultation October 2022 Left femoral fracture nonunion surgery Candido Arceo October 2022 EMG bilateral upper extremit ies January 2024 Dr. Blue bilateral carpal tunnel syndrome Prostate cancer low-grade [place] [facility] 2024 [facility] urology patient on active surveillance CT of the chest May 2024 e mphysema, possible interstitial lung process gallstones Consultation [facility] urology November 2024 low-grade prostate cancer recent MRI with a new lesion biopsy recommended Surgical History Surgery Date(Month/Year) bone graph bone marrow from hip replacem ent plate on left leg, back stimulator trial back surg x 3 cataract surgery bilateral Hernia x 2 umbilical L Leg surg Hospitalization History Reason Date(Month/Year) above
--- OUTSIDE RECORDS SUMMARY | 2024-12-12 15:15 | XMS_ITS ---
Author Organization [facility] Care Team Providers Care Gambling Monitor Name Role Phone Janet Martin Unavailable Unavailable Robbin Arriaga Unavailable Unavailable Alexander Schilling Unavailable Unavailable Allergies and adverse reactions Code CodeSystem Substance Reaction Severity StartDate Concern Status Darvon Unknown 07/15/2021 active 8785 RXNORM Propoxyphene Unknown 07/15/2021 active Tape Unknown 07/05/2020 active Care Team Name Role Address Phone Organization Dates Janet Martin PCP [address] [place] [address], [address], [facility] (Office): [phone] (Fax): [phone] [facility] 07/15/2021 - 08/06/2021 Robbin Arriaga [address], [address], [facility] (Office): : [facility] 07/15/2021 - 08/06/2021 Alexander Schilling [address], [address], [facility] (Office): [phone] (Fax): [phone] [facility] 07/15/2021 - 08/06/2021 Immunizations Immunization Status Vaccine Details Vaccine Code CodeSystem Rod e Notes SARS-COV-2 (COVID-19) completed SARS-COV-2 (COVID-19) vaccine, mRNA, spike protein, LNP, preservative free, 100 mcg/0.5mL dose or 50 mcg/0.25mL dose Step 2 of Multi-step with next step required 207 CVX created date: 01/10/2021 administered date: 05/04/2020 SARS-COV-2 (COVID-19) completed SARS-COV-2 (COVID-19) vaccine, mRNA, spike protein, LNP, preservative free, 100 mcg/0.5mL dose or 50 mcg/0.25mL dose Step 1 of Multi-step with next step required 207 CVX created date: 01/10/2021 administered date: 04/06/2020 Mental Status Section Date Assessment Total Score Description 08/06/2021 BIMS 15 cognitively int act CAM 0 No delirium ind icated PHQ-9 08 mild depression 07/22/2021 BIMS 14 cognitively int act CAM 0 No delirium ind icated PHQ-9 06 mild depression Insurance Providers Problems Problem # Description Date of onset Resolved Date Code CodeSystem Concern Status 1 BENIGN NEOPLASM OF MENINGES, UNSPECIFIED [address] active 2 NONDISPLACED TRANSVERSE FRACTURE OF SHAFT OF LEFT FEMUR, SUBSEQUENT ENCOUNTER FOR CLOSED FRACTURE WITH ROUTINE HEALING [address] active 3 PERSONAL HISTORY OF OTHER DISEASES OF THE CIRCULATORY SYSTEM [address] active 4 PERSONAL HISTORY OF PULMONARY EMBOLISM [address] active 5 CHRONIC OBSTRUCTIVE PULMONARY DISEASE, UNSPECIFIED [address] active 6 LOW BACK PAIN, UNSPECIFIED [address] active 7 OTHER IDIOPATHIC PERIPHERAL AUTONOMIC NEUROPATHY [address] active 8 OTHER MECHANICAL COMPLICATION OF INTERNAL FIXATION DEVICE OF LEFT FEMUR, SUBSEQUENT ENCOUNTER [address] active 9 PERSONAL HISTORY OF BENIGN NEOPLASM OF THE BRAIN [address] active 10 PERSONAL HISTORY OF OTHER (HEALED) PHYSICAL INJURY AND TRAUMA [address] active 11 UNSPECIFIED FRACTURE OF LEFT FEMUR, SUBSEQUENT ENCOUNTER FOR CLOSED FRACTURE WITH ROUTINE HEALING [address] active 12 UNSPECIFIED ABNORMALITIES OF GAIT AND MOBILITY [address] active 13 DISPLACED COMMINUTED FRACTURE OF SHAFT OF RIGHT FEMUR, INITIAL ENCOUNTER FOR OPEN FRACTURE TYPE I OR II [address] active 14 UNEQUAL LIMB LENGTH (ACQUIRED), RIGHT FEMUR [address] active 15 CARL'S PALSY [address] active 16 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 [address] active 17 DIFFICULTY IN WALKING, NOT ELSEWHERE CLASSIFIED [address] active 18 DISORDER OF THE AUTONOMIC NERVOUS SYSTEM, UNSPECIFIED [address] active 19 DISPLACED TRIMALLEOLAR FRACTURE OF RIGHT LOWER LEG, SUBSEQUENT ENCOUNTER FOR CLOSED FRACTURE WITH ROUTINE HEALING [address] active 20 EMPHYSEMA, UNSPECIFIED [address] active 21 ENCOUNTER FOR OTHER ORTHOPEDIC AFTERCARE [address] active 22 GASTRO-ESOPHAGEAL REFLUX DISEASE WITHOUT ESOPHAGITIS [address] active 23 HYPERLIPIDEMIA, UNSPECIFIED [address] active 24 MAJOR DEPRESSIVE DISORDER, RECURRENT, IN REMISSION, UNSPECIFIED [address] active 25 MULTIPLE FRACTURES OF RIBS, RIGHT SIDE, SUBSEQUENT ENCOUNTER FOR FRACTURE WITH ROUTINE HEALING [address] active 26 MUSCLE WEAKNESS (GENERALIZED) [address] active 27 NONDISPLACED COMMINUTED FRACTURE OF SHAFT OF LEFT TIBIA, SEQUELA [address] active 28 OTHER PULMONARY EMBOLISM WITHOUT ACUTE COR PULMONALE [address] active 29 PERSONAL HISTORY OF MALIGNANT NEOPLASM OF EYE [address] active 30 PRIMARY OSTEOARTHRITIS, UNSPECIFIED SITE [address] active 31 UMBILICAL HERNIA WITHOUT OBSTRUCTION OR GANGRENE [address] active 32 UNSPECIFIED FRACTURE OF SHAFT OF RIGHT FEMUR, SUBSEQUENT ENCOUNTER FOR CLOSED FRACTURE WITH ROUTINE HEALING [address] active Reason for Referral No Reasons for Referral Entered Social History Social History Observation Description Start Date End Date Code Code System Current Smoking Status Tobacco smoking consumption unknown 009260706 SNOMED CT Sex Assigned At Male 1955 99011-[address] [facility] Gender Identity Sexual Orientation Vital Signs Code Code System Vitals Name Values and Units Timing Information 54968-[address] [facility] Pain Level Value=5.0 08/06/2021 9279-[address] [facility] Respiratory Rate Value=18.0 Units=/m in 08/04/2021 8462-[address] [facility] Blood Pressure-Diastolic Value=70 Un its=mmHg 08/04/2021 8480-[address] [facility] Blood Pressure-Systolic Twqqw=151 Un its=mmHg 08/04/2021 8310-[address] [facility] Body Temperature Value=97.4 Units= F 08/04/2021 8867-[address] [facility] Heart rate Value=87.0 Units=/min 83572-[address] [facility] O2 % BldC Oximetry Value=95.0 Units= % 08/04/2021 96484-[address] [facility] Weight Afhzd=750.2 Units=Lbs 07/2021 8302-[address] [facility] Height Value=68.0 Units=Inches 07/07/2020
--- OUTSIDE RECORDS SUMMARY | 2024-12-12 15:15 | XMS_ITS | Clinical Summary ---
Author Organization [facility] Address [address] [address] Phone Care Team Providers Care [employer] Unified Communications Engineer Name Role Phone Bart Campa MD Primary Care Provider [phone] Allergies Active Allergy Reactions Criticality Noted Date Comments Adhesive Rash 03/17/2011 Morphine GI Upset,Other (See Comments) 07/19/2007 VOMITING Percocet (Oxycodone-Acetaminophen) GI Upset 07/19/2007 Phs Other Free Text-See Phs Viewer 05/18/2008 Fiberglass Propoxyphene N-Acetaminophen GI Upset,Other (See Comments) 07/19/2007 vomiting Medications buPROPion (WELLBUTRIN XL) 300 MG ER 24 hr tablet Take 300 mg by mouth daily. Active furosemide (LASIX) 20 MG tablet Take 20 mg by mouth. Active omeprazole (PRILOSEC) 40 MG capsule Take 40 mg by mouth daily. Active traZODone (DESYREL) 50 MG tablet Take 50 mg by mouth nightly. Active pravastatin (PRAVACHOL) 80 MG tablet Take 80 mg by mouth daily. Active cyclobenzaprine (FLEXERIL) 10 MG tablet Take 10 mg by mouth nightly. Active HYDROcodone-kiran taminophen (VICODIN) 7.5-300 mg per tablet Take 1 tablet by mouth every 6 (six) hours as needed for pain (specific location in comments). Active CALCIUM CARBONATE (CALCIUM 500 ORAL) Take by mouth. Active naproxen sodium (ALEVE) 220 MG tablet Take 220 mg by mouth 2 (two) times a day with meals. Active gabapentin (NEURONTIN) 300 MG capsule Take 1 capsule (300 mg total) by mouth 2 (two) times a day. 06/16/2016 Active OXcarbazepine (TRILEPTAL) 300 MG tablet Take 2 tablets (600 mg total) by mouth 2 (two) times a day. 06/16/2016 Active Active Problems Problem Noted Date Diagnosed Date Intracranial meningioma 09/18/2012 Overview (04/04/2014): Intracranial meningioma Low back pain 05/30/2011 Overview (04/04/2014): Low back pain Sacral pain 05/30/2011 Overview (04/04/2014): sacral pain; Bilateral Social History Tobacco Use Types Packs/Day Years [...] on file Sexual Orientation Not on file Last Filed Vital Signs Vital Sign Reading Time Taken Comments Blood Pressure 152/88 08/12/2018 1:22 PM EDT Pulse 69 08/12/2018 1:22 PM EDT Temperature 36.8 C (98.2 F) 08/12/2018 1:22 PM EDT Respiratory Rate 16 08/12/2018 1:22 PM EDT Oxygen Saturation 96% 08/12/2018 1:22 PM EDT Inhaled Oxygen Concentration - - Weight 106.3 kg (234 lb 5.6 oz) 08/12/2018 1:22 PM EDT Height 188 cm (6' 2 ) 08/12/2018 1:22 PM EDT Body Mass Index 30.09 08/12/2018 1:22 PM EDT Plan of Treatment Health Maintenance Due Date Last Done Comments Adult Td,Tdap Booster 1955 LIPID PANEL 1955 DEPRESSION SCREENING 1966 SMOKING Hx and SMOKELESS TOB ACCO SCREENING 05/15/1967 HEPATITIS C SCREENING 1972 COLOGUARD 05/15/1999 COLONOSCOPY 05/15/1999 COLORECTAL CANCER SCREENING 05/15/1999 FIT TEST 05/15/1999 FOBT 05/15/1999 SIGMOIDOSCOPY 05/15/1999 VIRTUAL COLONOSCOPY 05/15/1999 PNEUMOCOCCAL VACCINES (50+ y ears) (1 of 1 - PCV) 2004 ZOSTER VACCINES (1 of 2) 2004 INFLUENZA VACCINE (#1) 2024 12/10/2014 COVID-19 VACCINE (2 - 2024-2 6 season) 2024 04/06/2020 RSV VACCINE (1 - 1-dose 75+ series) 2029 HEPATITIS A VACCINES Aged Out No long er eligible based on patient's age to complete this topic HIB VACCINES Aged Out No longer eligi ble based on patient's age to complete this topic MENINGOCOCCAL VACCINES (ACWY) Aged Out No longer eligible based on patient's age to complete this topic MENINGOCOCCAL VACCINES (B) Aged Out N o longer eligible based on patient's age to complete this topic Medical Devices Not on file Insurance MEDICARE PART A & B [facility] MEDEX SUPPLEMENT MEDICARE PART A & B [employer] MED[employer] SUPPLEMENT MEDICARE PART A & B [employer] SUPPLEMENT MEDICARE PART A & B [employer] SUPPLEMENT MEDICARE PART A & B [employer] SUPPLEMENT MEDICARE PART A & B [employer] SUPPLEMENT MEDICARE PART A & B [employer] MED[employer] SUPPLEMENT MEDICARE PART A & B [employer] MEDEX SUPPLEMENT MEDICARE PART A & B [employer] MEDEX SUPPLEMENT Care Teams [employer] Unified Communications Engineer Relationship Specialty Start Date End Date Bart Campa MD [address] [place] [address] PCP - General 08/12/13 Additional Source Comments The information contained in this document represents components of the legal health record. It is not the complete legal health record.[facility]
--- OUTSIDE RECORDS SUMMARY | 2024-12-12 15:15 | XMS_ITS | Data Portability ---
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 essive disorder 229421306 F33.1 F41.1 Concurrent with anxiety Continue Wellbutrin XL 300 mg qd, duloxetine 120 mg qd, and Buspar 10 mg BID. Monitor mood and behavior Psych consult prn Insomnia 791036455 G47.0 9 Continue melatonin 10 mg qhs and sonata 10 mg qhs Monitor sleep pattern Idiopathic peripheral neuropathy 49398865 G60.8 Continue gabapentin 300 mg qam and 600 mg qpm. Monitor sxs. 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 Monitor for sequela Anemia 837500746 D50.8 Continue FeSO4 325 mg qd. Monitor labs prn Atopic jocy matitis of face 552309958 L20.89 Pt. says he has had this on and off, but never this badly. Might be exacerbate d by stress or facility detergent. Will try triamcinol one cream 0.1% BID for 2 weeks, If not improving consider derm consult [id number] MARIELA PEREIRA, KRISS [address] [place] [address] 07/16/2020 09:30:44 07/19/2020 13:38:48 Acquired unequal leg length 096709896 M21.761 Recovering slowly from shortening of LLE by Dr. De Paz. Continue APAP 650 mg q 6 hrs prn. oxycodone 5-10 mg q 3 hrs prn, and cyclobenza ankur 10 mg q 8 hrs prn muscle spasm. Continue Lovenox 40 daily x 28 days for AC Needs PT/OT for strengthen ing, balance, gait training, safety and function. WBAT. Robson out 2 wks post op - due to come out today Follow up with Dr. De Paz as planned. Monitor VS, labs, pain, CSM Pulmonary embolism 88960 003 I26.99 Hx of. Apixaban d/c'd after 6 months-06/13 020 Currently on lovenox for prophylaxi s. Monitor for sxs, Chronic back pain 198457 002 G89.29 Chronic back pain with hx of several back surgeries. Continue gabapentin 300 mg qAM and 600 mg qhs. Taper oxycodone aggressive ly prior to d/c as pt. may have harder time letting go of opiates because of chronic pain. Chronic ob structive pulmonary disease 93826750 J43.8 On no meds at this time Monitor resp. status Constipation 38702806 K5 9.09 Remains problemati c Continue miralax 17 gms qd and change prn senna plus to scheduled - 2 tabs qd Monitor bowel function. Dyslipidemia 350208768 E 78.49 Continue fish oil qd, fenofibrat e 48 mg qd and pravastati n 80 mg qd. Monitor labs as outpt. Major depr essive disorder 836140879 F33.1 F41.1 Concurrent with anxiety Continue Wellbutrin XL 300 mg qd, duloxetine 120 mg qd, and Buspar 10 mg BID. Monitor mood. Psych consult prn. Insomnia 195023983 G47.0 9 Continue melatonin 10 mg qhs and sonata 10 mg qhs. Monitor sleep patterns. Idiopathic peripheral neuropathy 93554738 G60.8 Continue gabapentin 300 mg qam and 600 mg qpm. Monitor sxs. Gastroesop hageal reflux disease 937737859 K21.9 No current sxs. Continue omeprazole 40 mg qd Monitor for sxs. Srivastava's palsy 970589009 G 51.0 Hx of. Monitor Anemia 706955199 D50.8 Continue FeSO4 325 mg qd. Monitor labs. Atopic jocy matitis of face 171623901 L20.89 Much improved. Continue triamcinol one cream 0.1% BID for 2 weeks. [id number] JAZMINE LEYVA , FINANCIAL ACCOUNTING ANALYST [address] [place] [address] 07/19/2020 14:10:57 07/22/2020 11:28:27 Acquired unequal leg length 551191233 M21.761 Recovering slowly from shortening of LLE by Dr. De Paz. Continue APAP 650 mg q 6 hrs prn. oxycodone 5-10 mg q 3 hrs prn, and cyclobenza ankur 10 mg q 8 hrs prn muscle spasm f/u with ortho today - recommend lovenox x2more weeks, continue PT/OT, and f/u again in 4 weeks(dr. de paz). Needs PT/OT for strengthen ing, balance, gait training, safety and function. WBAT. robson removed last week; doing well Monitor VS, labs, pain, CSM Atopic jocy matitis of face 283066094 L20.89 Much improved triamcinol one cream 0.1% BID for 2 weeks - now prn [id number] MARIELA PEREIRA, KRISS [address] [place] [address] 07/21/2020 12:12:05 07/28/2020 15:26:05 Acquired unequal leg length 614278569 M21.761 Recovering slowly from shortening of LLE by Dr. De Paz. Encourage use of APAP Start to titrate oxy - change order to 5 mg q 4 hr. prn cyclobenza ankur 10 mg q 8 hrs prn muscle spasm - planning on stopping if no issue with dose reduction of oxy. Had f/u with ortho - lovenox x2more weeks, continue PT/OT, and f/u again in 4 weeks(dr. de paz). WBAT. Monitor VS, labs, pain, CSM Atopic jocy matitis of face 520355932 L20.89 Much improved triamcinol one cream 0.1% BID for 2 weeks - now prn Pulmonary embolism 54725 003 I26.99 Hx of. Apixaban d/c'd after 6 months-06/13 020 Currently on lovenox for prophylaxi s. Monitor for sxs, Chronic back pain 042590 002 G89.29 Chronic back pain with hx of several back surgeries. Continue gabapentin 300 mg qAM and 600 mg qhs. Taper oxycodone aggressive ly prior to d/c as pt. may have harder time letting go of opiates because of chronic pain. Chronic ob structive pulmonary disease 72143968 J43.8 On no meds at this time Monitor resp. status Constipation 97239710 K5 9.09 Remains problemati c Continue miralax 17 gms qd and change prn senna plus to scheduled - 2 tabs qd Monitor bowel function. Dyslipidemia 289599023 E 78.49 Continue fish oil qd, fenofibrat e 48 mg qd and pravastati n 80 mg qd. Monitor labs as outpt. Major depr essive disorder 741500192 F33.1 F41.1 Concurrent with anxiety Continue Wellbutrin XL 300 mg qd, duloxetine 120 mg qd, and Buspar 10 mg BID. Monitor mood. Psych consult prn. Insomnia 929743352 G47.0 9 Continue melatonin 10 mg qhs and sonata 10 mg qhs. Monitor sleep patterns. Idiopathic peripheral neuropathy 01566287 G60.8 Continue gabapentin 300 mg qam and 600 mg qpm. Monitor sxs. Gastroesop hageal reflux disease 228719850 K21.9 No current sxs. Continue omeprazole 40 mg qd Monitor for sxs. Srivastava's palsy 710073896 G 51.0 Hx of. Monitor Anemia 376960165 D50.8 Continue FeSO4 325 mg qd. Monitor labs. [id number] BOLIVAR TOBIAS [address] [place] [address] 07/26/2020 14:33:44 07/28/2020 16:07:02 Acquired unequal leg length 360556056 M21.761 Recovering slowly from shortening of LLE by Dr. De Paz. Encourage use of APAP Start to titrate oxy - change order to 5 mg q 4 hr. prn - tolerating cyclobenza ankur 10 mg q 8 hrs prn muscle spasm - planning on stopping if no issue with dose reduction of oxy. Had f/u with ortho - lovenox x2more weeks, continue PT/OT, and f/u again in 4 weeks(dr. de paz). WBAT. Monitor VS, labs, pain, CSM Chronic back pain 593384 002 G89.29 Chronic back pain with hx of several back surgeries. Continue gabapentin 300 mg qAM and 600 mg qhs. Taper oxycodone aggressive ly prior to d/c as pt. may have harder time letting go of opiates because of chronic pain. monitor for pain control Chronic ob structive pulmonary disease 93643749 J43.8 On no meds at this time Monitor resp. status Constipation 82324925 K5 9.09 Remains problemati c Continue miralax 17 gms qd and change prn senna plus to scheduled - 2 tabs qd Monitor bowel function - took metamucil today; may take supp later if he feels he needs to Dyslipidemia 691938624 E 78.49 Continue fish oil qd, fenofibrat e 48 mg qd and pravastati n 80 mg qd. Monitor labs as outpt. Major depr essive disorder 543947926 F33.1 F41.1 Concurrent with anxiety Continue Wellbutrin XL 300 mg qd, duloxetine 120 mg qd, and Buspar 10 mg BID. Monitor mood. Psych consult prn. Insomnia 280118324 G47.0 9 Continue melatonin 10 mg qhs and sonata 10 mg qhs. Monitor sleep patterns. Idiopathic peripheral neuropathy 32136869 G60.8 Continue gabapentin 300 mg qam and 600 mg qpm. Monitor sxs. [id number] MARIELA PEREIRA, KRISS [address] [place] [address] 07/27/2020 10:44:18 07/29/2020 10:40:09 Acquired unequal leg length 789837791 M21.761 Improving. Encourage use of APAP in place of oxycodone. Titrating off oxy - reduce to 5 mg bid prn. Encouraged continued tapering at home. cyclobenza ankur 10 mg q 8 hrs prn muscle spasm - Had f/u with ortho - lovenox last dose 08/02. Second follow up early August WBAT. Monitor VS, labs, pain, CSM Chronic back pain 749764 002 G89.29 Chronic back pain with hx of several back surgeries. Continue gabapentin 300 mg qAM and 600 mg qhs. Taper off oxycodone monitor for pain control Chronic ob structive pulmonary disease 80029454 J43.8 On no meds at this time Monitor resp. status Constipation 99837051 K5 9.09 Continue: miralax 17 daily senna 2 tabs qd senna plus 2 tabs po daily prn Dyslipidemia 241544925 E 78.49 Continue fish oil qd, fenofibrat e 48 mg qd and pravastati n 80 mg qd. Monitor labs as outpt. Major depr essive disorder 777307117 F33.1 F41.1 Concurrent with anxiety Continue Wellbutrin XL 300 mg qd, duloxetine 120 mg qd, and Buspar 10 mg BID. Monitor mood. Psych consult prn. Insomnia 796416864 G47.0 9 Continue melatonin 10 mg qhs and sonata 10 mg qhs. Monitor sleep patterns. Idiopathic peripheral neuropathy 69037040 G60.8 Continue gabapentin 300 mg qam and 600 mg qpm. Monitor sxs. Health Concerns Section Related Observation LastModified by Organization Detai ls LastModified Time None Recorded Concern Status LastModified by Organization Details LastModified Time None Recorded Advance Directives Directive Y: full code, ok for dialysi s, and art. hydration, no art. nutrition. Payers Insurance Date Sequence Insurance Name Policy Number Policy Nobles Covered Member ID Nobles Member ID Guarantor Name 01/12/2021 1 [place] [employer] Luis Soares Podolak [id number] Luis Podolak 01/12/2021 2 [place] [id number] Luis Soares Podolak [id number] Luis Podolak Notes Date Note Type Note Provider Name and Address Organization Details Recorded Time 07/16/2020 text/html Luis is seen today for an acute visit. He is feeling better overall. He says the cream (triamcinolone) is working great for his rash. No dizziness, SOB, cough, CP. No GI upset, tami. good. Feeling constipated - agreeable to adding lax./softeners. Voiding without problems.Pain improving - mostly with activity/exercise. MARIELA PEREIRA NP [address] [facility], [address], [place], [address], [facility] [facility] 07/16/2020 09:38:34 07/19/2020 text/html Pt being seen for acute rounding visit today. Pt found nappying in his room; easily arousable but drifts back to sleep. He went out this am for f/u ortho appt. Ortho recs were to continue PT/OT, lovenox for 2 more weeks, and f/u again with ortho in 4 weeks. Spoke with nsg who offer no concerns. Triamcinolone cream worked well for atopic derm to face; changed to prn. They state pt is doing well; he got up, went to the bathroom, and was able to dress himself this am. Jazmine weaver [facility] 07/19/2020 14:45:02 07/21/2020 text/html Luis is seen today for an acute visit.Continues to progress in rehab - aiming for d/c next week. Up ambulating in the maldonado with walker with CGA with rehab.Pain improving, but still using oxycodone 1-3 x per day - usually 10 mg dose.Has used muscle relaxer twice this monthIn good spirits, NAD. Offers no complaints - denies dizziness, SOB, cough, CP, GI or issues. MARIELA PEREIRA NP [address] [facility], [address], [place], [address], [facility] 07/21/2020 12:23:46 07/26/2020 text/html Pt being seen for an acute rounding visit today. Anticipated d/c is 07/28. He is found lying in bed resting. He denies any CP, SOB, GI upset, or dizziness. Pt states he's going home sunday, everyone says I'm ready to go. Pt is c/o some right knee pain. He states he is eventually having a knee replacement to that knee. He was putting up the bed yesterday and the side table was stuck and it hit him in the side of the knee. It appears slightly swollen with a small bruise but not sure it's anymore swollen than normal. He found is difficult to do PT/OT today. He has been icing it with good effect. He states he is taking it easy today and will see how it feels tomorrow. Jazmine weaver [facility] 07/26/2020 15:12:29 07/27/2020 text/html Luis is seen today for discharge. He will be going home 07/28 with support of family and services. He is a 65 yr. old male admitted to [facility] from [facility] on 07/05 for continued care and rehab after a brief hosp. for surgery to correct leg length discrepancy. He presented to [facility] 07/02 for elective corrective surgery of leg length discrepancy.He initially had a comminuted open right femoral shaft fracture and underwent debridement and rodding. Area had healed, but leg length discrepancy noted on xray. He also had a TKR on that side, and due to potential complications with lengthening that leg it was decided to shorten the leg instead.He tolerated the procedure well, and is WBAT.On lovenox x 28 days post opStaples x 2 wks, now removed, incision well healed.Follow up set with Dr. De Paz 2 and 5 wks post op. While here, Luis has done well, meeting rehab goals for d/c home tomorrow. He is happy to be going home, but is a little concerned because his right knee has been more painful than usual. Unsure if he twisted or moved his knee the wrong way. Otherwise no other complaints at this time.Had follow up 07/[address] De Paz - good report - WBAT, lovenox x 2 more wks. Full code PMH: bells palsy, chronic back pain, COPD, right ankle fracture, constipation, dyslipidemia, right rib fractures, GERD, peripheral neuropathy, insomnia, depression and anxiety, intracranial tumor s/p XRT, right femur fracture, h/o PE. MARIELA PEREIRA NP [address] [facility], [address], [place], [address], [facility] 07/27/2020 11:03:44
--- OUTSIDE RECORDS SUMMARY | 2024-12-12 15:15 | XMS_ITS | Encounter Summary ---
Author Organization [facility] Address [address] [place] [address] Phone Care Team Providers Care Loan Servicing Representative Name Role Phone Bart Campa MD Primary Care Provider [phone] Encounter Details Date Type Department Care Team (Late st Contact Info) Description 06/14/2016 Procedure Pass [facility] [address] [place] [address] Social History Tobacco Use Types Packs/Day Years Used Date Smoking Tobacco: Unknown Sex and Gender Information Value Date Recorded Sex Assigned at Not on file Legal Sex Male 6:01 PM EST Gender Identity Not on file Sexual Orientation Not on file documented as of this encounter Plan of Treatment Not on file documented as of this encounter Visit Diagnoses Not on filedocumented in this encounter Care Teams Loan Servicing Representative Relationship Specialty Start Date End Date Bart Campa MD [address] [place] [address] PCP - General 08/12/13 documented as of this encounter Additional Source Comments The information contained in this document represents components of the legal health record. It is not the complete legal health record.[facility]
--- OUTSIDE RECORDS SUMMARY | 2024-12-12 15:15 | XMS_ITS | Encounter Summary ---
Author Organization [facility] Address [address] [facility] [address] [place] [address] Phone Care Team Providers Care Finishing Department Supervisor Name Role Phone Bart Campa MD Primary Care Provider [phone] Encounter Details Date Type Department Care Team (Late st Contact Info) Description 06/14/[address] [facility] [address] [place] [address] Social History Tobacco Use Types Packs/Day Years [...] on filedocumented in this encounter Care Teams Finishing Department Supervisor Relationship Specialty Start Date End Date Bart Campa MD [address] [place] [address] PCP - General 08/12/13 documented as of this encounter Additional Source Comments The information contained in this document represents components of the legal health record. It is not the complete legal health record.[facility]
--- OUTSIDE RECORDS SUMMARY | 2024-12-12 15:16 | XMS_ITS | Encounter Summary ---
Author Organization [facility] Address [address] [facility] [address] [place] [address] Phone Care Team Providers Care Clinical Rehabilitation Liaison Name Role Phone Bart Campa MD Primary Care Provider [phone] Encounter Details Date Type Department Care Team (Late st Contact Info) Description 08/12/2018 Procedure Pass [facility] [address] [place] [address] Social History Tobacco Use Types Packs/Day Years [...] on filedocumented in this encounter Care Teams Clinical Rehabilitation Liaison Relationship Specialty Start Date End Date Bart Campa MD [address] [place] [address] PCP - General 08/12/13 documented as of this encounter Additional Source Comments The information contained in this document represents components of the legal health record. It is not the complete legal health record.[facility]
== END 2024-12-12 15:11 | disposition home or self-care (01) ==
LOC: HO.HPS 14:52
PROVIDERS: PCP Internal Medicine; Visit Provider Hospitalist
DX: G47.33 Obstructive sleep apnea (adult) (pediatric) (principal); J43.2 Centrilobular emphysema; G89.29 Other chronic pain; J98.6 Disorders of diaphragm
CPT/HCPCS: 99214

== ENCOUNTER → 2024-12-12 14:51 | Outpatient (BNVA) | payer MEDICARE, SELFPAY | PROVIDERS: PCP Internal Medicine; Visit Provider Hospitalist | DX: J43.2 Centrilobular emphysema (principal); Z87.891 Personal history of nicotine dependence; G89.29 Other chronic pain; M54.9 Dorsalgia, unspecified; J98.6 Disorders of diaphragm | CPT/HCPCS: 99212 ==